=== PATIENT | female | born 1940 | race Caucasian/White ===

== ENCOUNTER 2016-06-08 06:54 | Inpatient (IN) | payer MEDICARE ==
[~2016-06-08] VITALS: Ht 152.4 cm; Wt 45.6 kg
[2016-06-08] VITALS (7 sets, daily range): BP systolic 90–132; BP diastolic 48–81
[2016-06-08] MEDS ORDERED: VANCOMYCIN 1 GM in IV NORMAL SALINE 250ML 250 ML IV ONE ×2 (07:15→21:00)
[2016-06-08] MEDS ORDERED: BACITRACIN 50,000 UNIT in IV NORMAL SALINE 250ML 250 ML IRR ONE (07:15)
[2016-06-08] MEDS ORDERED: CALC667T PO (07:27)
[2016-06-08] MEDS ORDERED: CHOL20004 PO (07:27)
[2016-06-08] MEDS ORDERED: BIOT25005 PO (07:27)
[2016-06-08] MEDS ORDERED: CARV3.122 PO (07:27)
[2016-06-08] MEDS ORDERED: FURO20TA3 PO (07:27)
[2016-06-08] MEDS ORDERED: POTA10CA PO (07:27)
[2016-06-08] MEDS ORDERED: LEVO50TA5 PO (07:27)
[2016-06-08] MEDS ORDERED: DENO60DI SQ (07:27)
[2016-06-08] MEDS ORDERED: LOSA25TA4 PO (07:27)
[2016-06-08] MEDS ORDERED: ASPI81TA2 PO (07:27)
[2016-06-08] MEDS ORDERED: TEMA15CA PO (07:27)
[2016-06-08] MEDS ORDERED: VANCOMYCIN 1GM IVPB FOR OMNI 250 ML IV ONE (07:30)
[2016-06-08 07:46] LABS: HEMATOCRIT 37.9 % (36.0-47.0); HEMOGLOBIN 12.2 g/dL (12.0-15.5); RED BLOOD COUNT 3.89 x10^6/uL (3.50-5.40); RED CELL DISTRIBUTION WIDTH 13.6 % (11.5-14.5)
[2016-06-08 08:08] LABS: INR 1.1 (0.8-1.1); PROTHROMBIN TIME PATIENT 13.6 SEC (11.7-14.0)
[2016-06-08 08:09] LABS: CALCIUM 9.4 mg/dL (8.5-10.1); CREATININE 1.3 mg/dL (0.6-1.0); GFR 39.8; POTASSIUM 4.2 mmol/L (3.5-5.1)
[2016-06-08] MEDS ORDERED: FENTANYL PF 250 MCG/5 ML VIAL. ONE (08:33)
[2016-06-08] MEDS ORDERED: MIDAZOLAM HCL/PF 5 MG/5 ML VIAL ONE (08:33)
[2016-06-08] MEDS ORDERED: LIDOCAINE 2%/EPI 1:100,000 20 ML VIAL. ONE (09:40)
[2016-06-08] MEDS ORDERED: MIDAZOLAM HCL/PF 5 MG/5 ML VIAL IV ONE (09:45)
[2016-06-08] MEDS ORDERED: FENTANYL PF 250 MCG/5 ML VIAL. IV ONE (09:45)
[2016-06-08] MEDS ORDERED: LIDOCAINE 2%/EPI 1:100,000 20 ML VIAL. IJ ONE (09:45)
--- NOTE | 2016-06-08 09:51 | PDOC ---
MODERATE SEDATION ASSESSMENT RISKS/ALTERNATIVES Risks/Alternatives Risks and alternatives of this type of sedation and procedure discussed with: RISK/ALTERNATIVES: Patient H & P ON CHART H & P H & P on chart and reviewed for co-morbid conditions and appropriate labs. H&P ON CHART: Yes STATUS PREG STATUS ASSESSED: N/A MEDS/ALLERGIES REVIEWED Meds/Allergies Reviewed Medications and Allergies including time and route of recently administered narcotics and sedatives. MEDS/ALLERGIES REVIEWED: Yes ASA RATING ASA RATING: II AIRWAY ASSESSMENT Airway Assessment Airway patency, oral function limitations, presence of caps, crowns, dentures, partials, and ability to extend neck assessed. AIRWAY ASSESSMENT: Yes MALLAMPATI SCORE MALLAMPATI SCORE: II PRE-SEDATION ASSESSMENT PRE-SEDATION ASSESSMENT: Yes RYAN TOLENTINO MD Jun 08, 2016 09:51
[2016-06-08] MEDS ORDERED: FLUMAZENIL 0.5 MG/5 ML VIAL. IV ONE (11:06)
[2016-06-08] MEDS ORDERED: MIDAZOLAM HCL 2 MG/2 ML VIAL. ONE ×2 (11:17→11:20)
[2016-06-08] MEDS ORDERED: MIDAZOLAM HCL 2 MG/2 ML VIAL. IV ONE (11:18)
--- NOTE | 2016-06-08 12:07 | CARD ---
APPROVED REPORT EXAM 1. Successful [employer] biventricular ICD/OIL GAUGER D right ventricular and right atrial lead replacement with generator change 2. Ventricular fibrillation induction and defibrillation threshold measurement at the time of implan tation INDICATIONS Severe nonischemic cardiomyopathy, chronic systolic heart failure and bundle branch block s/p biventr icular ICD/OIL GAUGER-D implantation presenting with device malfunction secondary to right ventricular and r ight atrial lead malfunction and less than 50% of battery remaining in generator. PROCEDURE After explaining the risks, benefits, and alternative options, informed consent was obtained from the patient. The patient was brought to the cardiac catheterization lab and the left chest and shoulder were prepp ed and draped in the usual fashion. 30 mL of 2% lidocaine was infiltrated into the skin and subcutaneous tissues for local anesthesia. An incision was made over the pocket and using blunt dissection and cautery the pocket was opened, the capsule exposed and opened and the previously placed degenerative removed from the pocket. The right ventricular and right atrial leads that the malfunctioning lead detached and capped. The left ventric ular lead was interrogated and found to be functioning well. Venous access was obtained in the left s ubclavian vein under fluoroscopy guidance and 9.5 and 7 [place] sheath inserted. Subsequently, a [employer] bipolar active fixation right ventricular lead model 7121Q-58, serial numb er [id number] was advanced under fluoroscopic guidance and the tip was positioned in the right ventric ular apex. Following this, a [employer] bipolar active fixation right atrial lead model 2088TC-52, se rial number [id number] was advanced under fluoroscopic guidance and the tip was positioned in the righ t atrial appendage. The lead was secured into place and along with the previously placed left ventric ular lead were attached to a new [employer] biventricular ICD/OIL GAUGER generator, model HQ2664-38C, serial n umber [id number]. The generator was placed in the pocket was subsequently closed in 3 layers. Hemostasis was secured. Ventricular fibrillation was then induced to check the defibrillation threshold. Patient successfully converted to sinus rhythm with 25 J shock therapy with a shock impedance of 35 ohms. At the end of p rocedure, the right ventricular lead showed sensing amplitude of 8.6 mV, impedance of 810 AND a thres hold of 1.5 W. The right atrial lead showed a sensing amplitude of 2.0 mV, impedance of 480 and a thr eshold of 1.0 V. Patient tolerated the procedure well. There were no immediate complications. CONCLUSION Successful [employer] biventricular ICD/OIL GAUGER-D right ventricular and right atrial lead replacement al karri with generator change. Defibrillation thresholds were measured at the time of implantation.
[2016-06-08] MEDS ORDERED: TEMAZEPAM 15 MG CAPSULE PO PRN (12:30)
--- NOTE | 2016-06-08 12:31 | RAD ---
Exam: AP portable chest. History: Status post pacemaker placement. Comparison: 09/19/2012. Findings: Cardiac silhouette appears within normal limits for size. No pneumothorax or pleural effusion is appreciated. No focal consolidation or failure is identified. The current examination demonstrates presence of an electronic generator pack involving left chest as well as presence of 5 AICD leads. Impression: 1. No acute cardiopulmonary process.
[2016-06-08] MEDS ORDERED: ONDANSETRON PF 4 MG/2 ML VIAL. IV PRN (12:45)
[2016-06-08] MEDS ORDERED: POTASSIUM CHLORIDE 10 MEQ TABLET.ER. PO ONE (14:00)
[2016-06-08] MEDS: CARVEDILOL 3.125 MG TABLET PO SCH (17:47)
[2016-06-09 03:35] VITALS: BP 112/62
[2016-06-09] MEDS ORDERED: LEVOTHYROXINE 50 MCG TABLET PO SCH (07:30)
[2016-06-09 07:45] VITALS: BP 121/72
[2016-06-09] MEDS ORDERED: ASPIRIN 81 MG TAB.CHEW PO SCH (08:00)
[2016-06-09] MEDS: CARVEDILOL 3.125 MG TABLET PO SCH (08:58)
[2016-06-09] MEDS ORDERED: LOSARTAN POTASSIUM 25 MG TABLET. PO SCH (09:00)
[2016-06-09] MEDS ORDERED: FUROSEMIDE 20 MG TABLET PO SCH (09:00)
[2016-06-09] MEDS ORDERED: POTASSIUM CHLORIDE 20 MEQ TABLET.ER. PO SCH (09:30)
--- NOTE | 2016-06-09 10:05 | RAD ---
EXAM: Chest, 2 views. HISTORY: Pacemaker. COMPARISON: 06/08/2016. FINDINGS: Frontal and lateral views of the chest are obtained. There are trace pleural effusions or there is basilar pleural thickening. There is no consolidation. There is no pneumothorax. The heart is normal in size. There is a left cardiac pacemaker defibrillator with leads in expected position. IMPRESSION: 1. Left cardiac pacemaker defibrillator. 2. Trace bilateral pleural effusions or basilar pleural thickening.
[2016-06-09 10:43] VITALS: BP 116/67
--- NOTE | 2016-06-09 10:46 | PDOC3 ---
Discharge Summary Visit Information Date of Admission: Jun 08, 2016 Date of Discharge: Jun 09, 2016 Admitting Diagnosis Comment: 1. RV lead malfunction 2. nonischemic cardiomyopath 3. hypothyroidism Final Diagnosis Problems Medical Problems: (1) Pacemaker lead malfunction Status: Acute 2. nonischemic cardiomyopathy 3. Hypothyroidism Brief Hospital Course Allergies Allergies Coded Allergies Type Severity Reaction Last Updated Verified zolpidem Allergy Severe 06/08/16 Yes Penicillins Allergy Intermediate 06/08/16 Yes acetaminophen Allergy Intermediate 06/08/16 Yes codeine Allergy Intermediate 06/08/16 Yes Vital Signs Vital Signs Date Time Temp Pulse Resp B/P Pulse Ox O2 Delivery O2 Flow Rate FiO2 06/09/16 08:58 75 121/72 06/09/16 08:00 Room Air 06/09/16 07:45 97.9 18 95 97.9 Lab Results Laboratory Tests Test 06/08/16 07:30 White Blood Count 6.0x10^3/uL (4.0-11.0) Red Blood Count 3.89x10^6/uL (3.50-5.40) Hemoglobin 12.2g/dL (12.0-15.5) Hematocrit 37.9% (36.0-47.0) Mean Corpuscular Volume 98fL (79-100) Mean Corpuscular Hemoglobin 32pg (25-35) Mean Corpuscular Hemoglobin Concent 32g/dL (31-37) Red Cell Distribution Width 13.6% (11.5-14.5) Platelet Count 334x10^3/uL (140-400) Prothrombin Time 13.6SEC (11.7-14.0) Prothromb Time International Ratio 1.1 (0.8-1.1) Activated Partial Thromboplast Time 30SEC (24-38) Sodium Level 142mmol/L (136-145) Potassium Level 4.2mmol/L (3.5-5.1) Chloride Level 102mmol/L (98-107) Carbon Dioxide Level 29mmol/L (21-32) Anion Gap 11 (6-14) Blood Urea Nitrogen 39mg/dL (7-20) Creatinine 1.3mg/dL (0.6-1.0) Estimated GFR (Cockcroft-Gault) 39.8 Glucose Level 101mg/dL (70-99) Calcium Level 9.4mg/dL (8.5-10.1) Brief Hospital Course Ms. Sanchez is a 76 old female with a history of non-ischemic cardiomyopathy and bi-ventricular ICD in situ. RV lead impedances have been monitored due to continued degradation. Impedances have dropped to < 100 and reproducible noise on RV lead present. Advised to have lead replaced. RA and RV leads replaced yesterday and generator changed as < 2years present on generator. Monitor overnight without dysrhythmias. ICD interrogation today without significant findings. CXR without pneumothorax. Left pectoral wound intact, no erythema, edema or ecchymosis. PPM care/cautions discussed with patient and reminded to wear immobilizer during sleep for at least the next 2 weeks. Discharge Information Condition at Discharge: Stable Follow Up: Weeks (2 weeks for wound check; ) Disposition/Orders: D/C to Home Scheduled Aspirin (Aspirin) 1 TAB PO DAILY (Reported) Calcium Acetate (Calcium Acetate) 667 MG PO TIDWMEALS (Reported) Carvedilol (Carvedilol) 3.125 MG PO BIDWMEALS (Reported) Cholecalciferol (Vitamin D3) (Vitamin D-3) 2,000 UNIT PO DAILY (Reported) Denosumab (Prolia) 60 MG SQ A (Reported) Furosemide (Furosemide) 20 MG PO DAILY (Reported) Levothyroxine Sodium (Levothyroxine Sodium) 50 MCG PO DAILYAC (Reported) Losartan Potassium (Losartan Potassium) 12.5 MG PO DAILY (Reported) Potassium Chloride (Potassium Chloride) 10 MEQ PO DAILY (Reported) Scheduled PRN Temazepam (Temazepam) 15 MG PO HS PRN PRN INSOMNIA (Reported) Miscellaneous Medications Biotin (Biotin) 5,000 MCG PO (Reported) Patient Instructions Patient Instructions Must know & what to expect after device implant: 1. Your surgical dressing should be removed prior to discharge from the hospital, but allow the steri- strips to fall off naturally. 2. Activity restrictions: DO NOT raise arm above shoulder level, lift anything heavier than a gallon of milk, and no push or pull motions such as vacuuming/lawn mowing, no swinging motions (golf), etc for 4 weeks. 3. It is OK to use a cell phone or other electronic devices just be sure you do not store it in a breast pocket on the side where the device was placed. 4. Device will be interrogated prior to your discharge from the hospital and then every 3 months for defibrillators and every 6 months for pacemakers. You may be asked to have your device checked remotely from home as well, but this will depend on your particular physicians preference. 5. You may remove the arm immobilizer the day after device placement. Wear the arm immobilizer/splint at night (during sleep times) for 2 week to prevent unintended arm movement that can cause lead dislodgement. 6. Do not drive for one week as the task of driving may lead to unintended arm motion that may cause lead dislodgement. The seatbelt will also rub against the incision site & cause irritation. 7. It is our recommendation that you utilize Tylenol at home for pain control. You need to call our office if you are having uncontrollable pain at the incision site. 8. Keep your incision clean and dry. It is OK to shower. DO NOT submerge in bath, pool, or hot tub, until cleared by your doctor, as this could lead to increase risk of infection.. It is OK to use regular soap just do not scrub the incision site. Water spray from shower should not directly hit the incision. Be sure to blot dry not rub. 9. Inspect your incision daily. If you notice any increased redness, swelling , or drainage, or if you start running a fever, call the office immediately. The number is [phone]. 10. For women, if you need to protect against irritation from the bra straps, you can place a piece of gauze over the incision site for cushion. Please be sure to tape it loosely to allow air to the site & remove the gauze when you remove the bra. 11. Be sure to carry your device identification information card in your wallet/purse at all times. 12. It is OK to go through security at the airport with your device, but be sure to let the TSA know prior to proceeding as the security settings change depending on varying factors. Please do whatever is requested by security at that time. 13. Some of the newer devices may be MRI compatible but, currently, the use of these devices is not widespread, so you likely will not be able to have an MRI. Please clarify this with your physician. Special instructions for defibrillator patients: If your device recognizes a rhythm that requires treatment with a shock, you will most likely feel the shock. This is usually not a subtle feeling and it is uncomfortable. Please follow these steps if you receive a shock: Call the office if you receive one shock. Go to the emergency room if you receive two consecutive shocks- please have someone drive you & call 911 if nobody is available- DO NOT drive yourself. Call 911 if you receive more than 2 consecutive shocks. If at any time, you feel lightheaded or dizzy/faint, stop what you are doing & lie down immediately. If you are driving, get to the side of the road quickly, turn your car off & call 911 on your cell phone. DO NOT continue to drive as this may cause an accident that seriously injures yourself &/or others. Call the office at [phone] for any questions or concerns. ANKIT JAQUEZ APRN Jun 09, 2016 10:46
== END 2016-06-09 13:50 | disposition home or self-care (01) | DRG 227 ==
LOC: CCL 06:54 → 2 NORTH 08:37
PROVIDERS: ADMIT Internal Medicine Cardiovascular Disease; ATTEND Internal Medicine Cardiovascular Disease
PROC: 0JPT0PZ Removal of Cardiac Rhythm Related Device from Trunk Subcutaneous Tissue and Fascia, Open Approach (ICD-10-PCS; principal; 2016-06-08)
PROC: 0JH609Z Insertion of Cardiac Resynchronization Defibrillator Pulse Generator into Chest Subcutaneous Tissue and Fascia, Open Approach (ICD-10-PCS; 2016-06-08)
PROC: 02HK3KZ Insertion of Defibrillator Lead into Right Ventricle, Percutaneous Approach (ICD-10-PCS; 2016-06-08)
PROC: 02PA3MZ Removal of Cardiac Lead from Heart, Percutaneous Approach (ICD-10-PCS; 2016-06-08)
PROC: 02H63KZ Insertion of Defibrillator Lead into Right Atrium, Percutaneous Approach (ICD-10-PCS; 2016-06-08)
PROC: 4A02X4Z Measurement of Cardiac Electrical Activity, External Approach (ICD-10-PCS; 2016-06-09)
DX: T82.110A Breakdown (mechanical) of cardiac electrode, initial encounter (principal); I42.9 Cardiomyopathy, unspecified; I50.22 Chronic systolic (congestive) heart failure; G47.00 Insomnia, unspecified; E03.9 Hypothyroidism, unspecified; Y83.9 Surgical procedure, unspecified as the cause of abnormal reaction of the patient, or of later complication, without mention of misadventure at the time of the procedure; I45.4 Nonspecific intraventricular block; Z88.0 Allergy status to penicillin; Z88.6 Allergy status to analgesic agent; Z88.8 Allergy status to other drugs, medicaments and biological substances; Z88.5 Allergy status to narcotic agent
CPT/HCPCS: 33249; 36415; 71010; 71020; 80048; 85027; 85610; 85730; 93641; C1882; C1895; C1898; J2250; J2405; J3010; J3370; J3490; J7050; J7030

== ENCOUNTER → 2017-10-31 | Outpatient (CLI) | payer MEDICARE | END | disposition home or self-care (01) | LOC: ECHO 07:41 | DX: I08.1 Rheumatic disorders of both mitral and tricuspid valves (principal); I42.9 Cardiomyopathy, unspecified; Z95.0 Presence of cardiac pacemaker | CPT/HCPCS: 93306 ==

== ENCOUNTER → 2018-11-01 | Outpatient (CLI) | payer MEDICARE ==
[2016-07-02 10:04] VITALS: BP 103/63
[~2018-11-01] MED LIST: ASPI-630 PO; BIOT25006 PO; CALC667T4 PO; CARV3.1210 PO; CHOL200074 PO; DENO60DI SQ; FURO20TA3 PO; LEVO50TA5 PO; LOSA25TA54 PO; POTA10TA12 PO; TEMA15CA PO
--- NOTE | 2018-11-01 09:23 | CARD ---
MR#: [id number] Date of Study: 11/01/2018 Ordering Physician: RYAN TOLENTINO, Referring Physician: RYAN TOLENTINO Tech: Shea Alas RDCS APPROVED REPORT EXAM: Two-dimensional and M-mode echocardiogram with Doppler and color Doppler. Other Information Quality : Good INDICATION Congestive Heart Failure Non-Ischemic Cardiomyopathy, Pacemaker 2D DIMENSIONS RVDd2.6 (2.9-3.5cm)Left Atrium(2D)3.0 (1.6-4.0cm) IVSd0.8 (0.7-1.1cm)Aortic Root(2D)2.5 (2.0-3.7cm) LVDd4.4 (3.9-5.9cm)LVOT Diameter1.9 (1.8-2.4cm) PWd0.8 (0.7-1.1cm)LVDs3.1 (2.5-4.0cm) FS (%) 30.2 %SV50.5 ml Aortic Valve AoV Peak Saud.99.6cm/sAoV VTI18.0cm AO Peak GR.4.0mmHgLVOT Peak Saud.66.0cm/s LVOT VTI 14.06cmAO Mean GR.2mmHg SHANTAL (VMAX)1.99gz2VHU (VTI)2.19cm2 Mitral Valve MV E Icsykmuo38.5cm/sMV DECEL ACWG184fo MV A Mmfwgvvx97.6cm/sMV PBO23sg E/A Ratio0.8MVA (PHT)3.57cm2 TDI E/Lateral E'9.5E/Medial E'16.9 Tricuspid Valve TR P. Zklcwqfn607wc/sRAP YEEBVJAD9peYu TR Peak Gr.92heLjUECT21ocGi Pulmonary Vein S1 Bjibuvbe18.8cm/sD2 Mixuxtlv89.8cm/s LEFT VENTRICLE The left ventricle is normal size. There is normal left ventricular wall thickness. Left ventricle sy stolic function is low normal. The Ejection Fraction is estimated at 50%. Apical motion consistent wi th pacemaker activation. Transmitral Doppler flow pattern is Grade I-abnormal relaxation pattern. RIGHT VENTRICLE The right ventricle is normal size. The right ventricular systolic function is normal. There are lata ce leads in the right ventricle and arrium. ATRIA The left atrium size is normal. The right atrium size is normal. A device lead is seen in the right a trium consistent with history. The interatrial septum is intact with no evidence for an atrial septal defect or patent foramen ovale as noted on 2-D or Doppler imaging. AORTIC VALVE The aortic valve is mildly thickened but opens well. Doppler and Color Flow revealed no significant a ortic regurgitation. There is no significant aortic valvular stenosis. MITRAL VALVE The mitral valve is calcified but opens well. Mitral annular calcification is mild. There is no evide nce of mitral valve prolapse. There is no mitral valve stenosis. Doppler and Color-flow revealed mild mitral regurgitation. TRICUSPID VALVE The tricuspid valve is normal in structure and function. Doppler and Color Flow revealed mild tricusp id regurgitation. The PA pressure was estimated at 38 mmHg. There is no tricuspid valve stenosis. PULMONIC VALVE The pulmonary valve is normal in structure and function. Doppler and Color Flow revealed no pulmonic valvular regurgitation. There is no pulmonic valvular stenosis. GREAT VESSELS The aortic root is normal in size. The ascending aorta is not well seen. The IVC is normal in size an d collapses >50% with inspiration. PERICARDIAL EFFUSION There is no evidence of significant pericardial effusion. Critical Notification Critical Value: No <Conclusion> The left ventricle is normal size. Left ventricle systolic function is low normal. The Ejection Fraction is estimated at 50%. Apical motion consistent with pacemaker activation. There are device leads in the right ventricle and arrium. There is no significant aortic valvular stenosis. Doppler and Color Flow revealed no significant aortic regurgitation. Doppler and Color-flow revealed mild mitral regurgitation. Doppler and Color Flow revealed mild tricuspid regurgitation. The PA pressure was estimated at 38 mmHg. Signed by : Amor Carter MD Electronically Approved : 11/01/2018 09:22:57
== END | disposition home or self-care (01) ==
LOC: ECHO 07:43
PROVIDERS: ATTEND Internal Medicine Cardiovascular Disease
DX: I08.1 Rheumatic disorders of both mitral and tricuspid valves (principal); I50.22 Chronic systolic (congestive) heart failure; I42.9 Cardiomyopathy, unspecified
CPT/HCPCS: 93306

== ENCOUNTER → 2019-11-12 | Outpatient (CLI) | payer MEDICARE ==
[2016-07-02 10:04] VITALS: BP 103/63
--- NOTE | 2019-11-12 12:09 | CARD ---
MR#: [id number] Date of Study: 11/12/2019 Ordering Physician: RYAN TOLENTINO, Referring Physician: RYAN TOLENTINO Tech: Shea Alas RDCS APPROVED REPORT EXAM: Two-dimensional and M-mode echocardiogram with Doppler and color Doppler. Other Information Quality : Good INDICATION Congestive Heart Failure 2D DIMENSIONS RVDd2.3 (2.9-3.5cm)Left Atrium(2D)2.8 (1.6-4.0cm) IVSd0.9 (0.7-1.1cm)Aortic Root(2D)2.5 (2.0-3.7cm) LVDd3.9 (3.9-5.9cm)LVOT Diameter2.0 (1.8-2.4cm) PWd0.9 (0.7-1.1cm)LVDs2.4 (2.5-4.0cm) FS (%) 30.0 %SV44.1 ml LVEF(%)40.0 (>50%) Aortic Valve AoV Peak Saud.118.8cm/sAoV VTI26.2cm AO Peak GR.5.6mmHgLVOT Peak Saud.68.6cm/s AO Mean GR.3mmHgAVA (VMAX)1.79cm2 Mitral Valve MV E Prwhlgmv52.8cm/sMV DECEL QUEJ298vw MV A Rsguhtwk67.1cm/sE/A Ratio0.6 Tricuspid Valve TR P. Gcmrtwbs273my/sRAP EACAUYGU2rcAq TR Peak Gr.90qxSxEJTO30rgRw Pulmonary Vein S1 Ncttiuaw82.3cm/sD2 Bytnlnca00.8cm/s LEFT VENTRICLE The left ventricle is normal size. There is normal left ventricular wall thickness. Left ventricle sy stolic function is mildly impaired. The Ejection Fraction is 40-45%. Apical motion consistent with pa cemaker activation. Transmitral Doppler flow pattern is Grade I-abnormal relaxation pattern. RIGHT VENTRICLE The right ventricle is normal size. The right ventricular systolic function is normal. ATRIA The left atrium size is normal. The right atrium size is normal. The interatrial septum is intact wit h no evidence for an atrial septal defect or patent foramen ovale as noted on 2-D or Doppler imaging. AORTIC VALVE The aortic valve is mildly thickened but opens well. Doppler and Color Flow revealed no significant a ortic regurgitation. There is no significant aortic valvular stenosis. MITRAL VALVE Mitral annular calcification is mild. The mitral valve is calcified but opens well. There is no evide nce of mitral valve prolapse. There is no mitral valve stenosis. Doppler and Color-flow revealed mild mitral regurgitation. TRICUSPID VALVE The tricuspid valve is normal in structure and function. Doppler and Color Flow revealed mild tricusp id regurgitation. There is mild pulmonary hypertension. The PA pressure was estimated at 34 mmHg. The re is no tricuspid valve stenosis. PULMONIC VALVE The pulmonic valve is not well visualized. Doppler and Color Flow revealed no pulmonic valvular regur gitation. There is no pulmonic valvular stenosis. GREAT VESSELS The aortic root is normal in size. The ascending aorta is not well seen. The IVC is normal in size an d collapses >50% with inspiration. PERICARDIAL EFFUSION There is no evidence of significant pericardial effusion. Critical Notification Critical Value: No <Conclusion> Left ventricle systolic function is mildly impaired. The Ejection Fraction is 40-45%. Apical motion consistent with pacemaker activation. Transmitral Doppler flow pattern is Grade I-abnormal relaxation pattern. Mild mitral regurgitation. Mild tricuspid regurgitation. There is mild pulmonary hypertension. The PA pressure was estimated at 34 mmHg. There is no evidence of significant pericardial effusion. Signed by : Ryan Tolentino, Electronically Approved : 11/12/2019 12:08:58
== END | disposition home or self-care (01) ==
LOC: ECHO 09:39
PROVIDERS: ATTEND Internal Medicine Cardiovascular Disease
DX: I08.1 Rheumatic disorders of both mitral and tricuspid valves (principal); I50.22 Chronic systolic (congestive) heart failure; I50.84 End stage heart failure; I27.20 Pulmonary hypertension, unspecified
CPT/HCPCS: 93306

== ENCOUNTER → 2020-04-30 | Outpatient (CLI) | payer MEDICARE ==
[2016-07-02 10:04] VITALS: BP 103/63
[~2020-04-30] MED LIST changes: +REGADENOSON 0.4 MG/5 ML DISP.SYRIN. IV ONE
--- NOTE | 2020-05-01 11:13 | RAD ---
MR#: [id number] Date of Study: 04/30/2020 Ordering Physician: RYAN TOLENTINO, Referring Physician: RENETTA CUNNINGHAM Tech: RT Lorenza Noland) (N) APPROVED REPORT Test Type: Pharmacological Stress Nurse/Tech: Missy Salazar RN Test Indications: Chronic systolic CHF Cardiac History: Pacemaker & defibrillator Medications: See Electronic Medical Record Medical History: See Electronic Medical Record Resting ECG: AV Paced with PVCs Resting Heart Rate: 98 bpm Resting Blood Pressure: 156/89mmHg Pretest Chest Pain: No chest pain Nurse/Tech Notes S1,S2 and lungs slightly diminished in the bases. Consent: The procedure was explained to the patient in lay terms. Informed consent was witnessed. Herbie eout was entered into [employer]. History and Stress Test performed by RT Ludin (R) (N) Pharm. Details Pharmacologic stress testing was performed using 0.4mg per 5ml of regadenoson given intravenously ove r 7-10 seconds. Stress Symptoms No chest pain or symptoms. POST EXERCISE Reason for Termination: Infusion complete Target HR: Yes Max HR: 120 bpm 100% of Maximum Predicted HR: 119 bpm Max Blood Pressure: 156/64mmHg Blood Pressure response to exercise: Normal blood pressure response during stress. Heart Rate response to exercise: WNL Chest Pain: No. Arrhythmia: Yes. PVC's ST Change: No. INTERPRETATION Stress EKG Conclusion: Non-diagnostic EKG due to pacing artifact. Imaging Protocol IMAGE PROTOCOL: Rest Tc-99m/stress Tc-99m 1 day Rest: Stress: Viability: Radiopharm.Tc99m IedqgxlxzGk30e Sestamibi Dose10.6mCi 31.5mCi Duration 13min. 13min. Img Date 04/30/2020 04/30/2020 Inj-Img Mtbk75scu. 60min. Rest Admin Site:IV - Right AntecubitalAdministrator:RT Ludin (Haris)(N) Stress Admin Site: IV - Right AntecubitalAdministrator: RT Ludin (R)(N) STRESS DATA End Diast. Vol.43.0mlLVEDV index BSA31.0ml End Syst. Vol.15.0mlLVESV index BSA11.0ml Myocardial Mass78.0gEject. Aqlwkoqm64.0% Stress Scores Regional WT2.00Summed WT15.00 Regional WM0.00Summed WM4.00 The rest and stress images show normal perfusion, normal contraction and thickening. LV Perf. Quant 17 Seg. SSS0.00 17 Seg. SRS0.00 17 Seg. SDS0.00 Stress Defect Extent (% LAD)0.00Rest Defect Extent (% LAD)0.00Rev. Defect Extent (% LAD)0.00 Stress Defect Extent (% LCX) 0.00Rest Defect Extent (% LCX)0.00Rev. Defect Extent (% LCX)0.00 Stress Defect Extent (% RCA)0.00Rest Defect Extent (% RCA)0.00Rev. Defect Extent (% RCA)0.00 Stress Defect Extent (% JAY)0.00Rest Defect Extent (% JAY)0.00Rev. Defect Extent (% JAY)0.00 Other Information Quality:Good Risk Assessment: Low Risk Conclusion 1. Non-diagnostic EKG due to pacing artifact. 2. Normal perfusion at stress/rest. 3. Normal EF at > 65% 4. Low risk study Signed by : Johnnie Alonzo, Electronically Approved : 05/01/2020 11:12:42
== END ==
LOC: NM 08:49
PROVIDERS: ATTEND Internal Medicine Cardiovascular Disease
DX: I50.22 Chronic systolic (congestive) heart failure (principal); Z95.0 Presence of cardiac pacemaker
CPT/HCPCS: 78452; 93017; A9500; J2785

== ENCOUNTER → 2020-11-12 | Outpatient (CLI) | payer MEDICARE ==
[2016-07-02 10:04] VITALS: BP 103/63
[~2020-11-12] MED LIST changes: -REGADENOSON 0.4 MG/5 ML DISP.SYRIN. IV ONE
--- NOTE | 2020-11-12 14:59 | CARD ---
MR#: [id number] Date of Study: 11/12/2020 Ordering Physician: RYAN TOLENTINO, Referring Physician: RYAN TOLENTINO, Tech: Pastora Soliz [facility] APPROVED REPORT EXAM: Two-dimensional and M-mode echocardiogram with Doppler and color Doppler. Other Information Quality : AverageHR: 60bpm Rhythm : NSR INDICATION Congestive Heart Failure 2D DIMENSIONS Left Atrium(2D)2.6 (1.6-4.0cm)IVSd1.1 (0.7-1.1cm) LVDd4.4 (3.9-5.9cm)LVOT Diameter1.8 (1.8-2.4cm) PWd0.9 (0.7-1.1cm)LVDs3.0 (2.5-4.0cm) FS (%) 32.0 %SV53.6 ml Tricuspid Valve TR P. Psqwewoe349wu/sTR Peak Gr.27mmHg LEFT VENTRICLE The left ventricle is normal size. There is normal left ventricular wall thickness. The systolic func tion is minimally impaired. Left ventricular ejection fraction is estimated at 45%. There is mild gl obal hypokinesis of the left ventricle. RIGHT VENTRICLE The right ventricle is normal size. There is normal right ventricular wall thickness. The right ventr icular systolic function is normal. ATRIA The left atrium size is normal. The right atrium size is normal. AORTIC VALVE The aortic valve is normal in structure and function. There is no significant aortic valvular stenosi s. MITRAL VALVE The mitral valve is normal in structure and function. There is no evidence of mitral valve prolapse. There is no mitral valve stenosis. Doppler and Color Flow revealed no mitral valve regurgitation note d. TRICUSPID VALVE The tricuspid valve is normal in structure and function. Doppler and Color Flow revealed trace to mil d tricuspid regurgitation. Estimated PAP 32 mmHg. There is no tricuspid valve stenosis. GREAT VESSELS The aortic root is normal in size. The ascending aorta is normal in size. The IVC is normal in size a nd collapses >50% with inspiration. PERICARDIAL EFFUSION There is no evidence of significant pericardial effusion. Critical Notification Critical Value: No <Conclusion> The left ventricle is normal size. The systolic function is minimally impaired. Left ventricular ejection fraction is estimated at 45%. There is mild global hypokinesis of the left ventricle. There is no significant aortic valvular stenosis. Doppler and Color Flow revealed no mitral valve regurgitation noted. Doppler and Color Flow revealed trace to mild tricuspid regurgitation. Estimated PAP 32 mmHg. Signed by : Amor Carter MD Electronically Approved : 11/12/2020 14:59:06
== END ==
LOC: ECHO 10:45
PROVIDERS: ATTEND Internal Medicine Cardiovascular Disease
DX: I36.1 Nonrheumatic tricuspid (valve) insufficiency (principal); I50.22 Chronic systolic (congestive) heart failure
CPT/HCPCS: 93308